=== PATIENT | male | born 1985 | race Caucasian/White ===

== ENCOUNTER 2019-10-27 17:47 | Emergency (ER) | payer SELFPAY ==
--- NOTE | 2019-10-27 18:11 | PDOC ---
Rapid Medical Evaluation Chief Complaint: Palpitations Medical Evaluation: 10/27/19 18:09 Pt presents for evaluation of palpitations for 1 week. He also admits to L sided chest pain. He was sent to the ER from the clinic on [facility] for further evaluation Exam: RRR S1S1 present. (-) m/r/g, lungs cTAB Orders: cardiac work up Pt to proceed to the ER for further evaluation. Discharge Disposition - Diagnosis Palpitations - Referrals - Patient Instructions - Post Discharge Activity
[2019-10-27 18:12] VITALS: BP 132/83; PULSE 85; TEMP 98.3; BMI 33.5
[2019-10-27 18:45] LABS: BASO % 0.4 % (0-2.0); EOS % 2.6 % (0-4.5); HEMATOCRIT 46.2 % (35.4-49); LYMPH % 45.9 % (8-40); MCH 31.9 pg (25.7-33.7); MCHC 34.7 g/dl (32.0-35.9); MEAN CELL VOLUME 91.9 fl (80-96); MEAN PLT VOLUME 9.2 fl (7.5-11.1); MONO % 6.7 % (3.8-10.2); NEUT % 44.4 % (42.8-82.8); PLATELET COUNT 181 K/MM3 (134-434); RBC 5.03 M/mm3 (4.00-5.60); RDW 12.4 % (11.9-15.9); WHITE BLOOD COUNT 6.5 K/mm3 (4.0-10.0)
[2019-10-27 19:16] LABS: ALBUMIN 4.4 g/dl (3.4-5.0); BILIRUBIN,TOTAL 0.5 mg/dL (0.2-1); CALCIUM 8.8 mg/dL (8.5-10.1); CREATININE 0.8 mg/dL (0.55-1.3); MAGNESIUM 2.4 mg/dL (1.8-2.4); POTASSIUM 3.8 mmol/L (3.5-5.1); TOT PROT 7.7 g/dl (6.4-8.2)
--- NOTE | 2019-10-27 19:27 | PDOC ---
*Physical Exam - Vital Signs Last Vital Signs Temp Pulse Resp BP Pulse Ox 98.3 F 85 18 132/83 99 10/27/19 18:08 10/27/19 18:08 10/27/19 18:08 10/27/19 18:08 10/27/19 18:08 ED Treatment Course - LABORATORY CBC & Chemistry Diagram: 10/27/19 18:16 10/27/19 18:16 - ADDITIONAL ORDERS Additional order review: Laboratory Results 10/27/19 10/27/19 18:16 18:16 Sodium 137 Potassium 3.8 Chloride 106 Carbon Dioxide 26 Anion Gap 5 L BUN 15.0 Creatinine 0.8 Est GFR (CKD-EPI)AfAm 136.03 Est GFR (CKD-EPI)NonAf 117.37 Random Glucose 101 Calcium 8.8 Magnesium 2.4 Total Bilirubin 0.5 AST 31 ALT 67 H Alkaline Phosphatase 107 Creatine Kinase 247 Troponin I < 0.02 Total Protein 7.7 Albumin 4.4 10/27/19 18:16 RBC 5.03 MCV 91.9 MCHC 34.7 RDW 12.4 MPV 9.2 Neutrophils % 44.4 Lymphocytes % 45.9 H Monocytes % 6.7 Eosinophils % 2.6 Basophils % 0.4 Medical Decision Making - Medical Decision Making 10/27/19 19:26 Patient seen by the advanced practice provider under my direct supervision. Ancillary testing reviewed as necessary. I agree with plan as outlined by the advanced practice provider. Discharge - Discharge Information Problems reviewed: Yes Clinical Impression/Diagnosis: Palpitations Condition: Stable Disposition: HOME - Follow up/Referral Referrals: Steven Roberts MD [Staff Physician] - 2 Days - Patient Discharge Instructions Patient Printed Discharge Instructions: DI for Palpitations Additional Instructions: Thank you for choosing [facility]. It was a pleasure taking care of you. Your labs and imaging were unremarkable Please follow-up with your primary care doctor for further evaluation You were also referred to a refuse driver Return to the Emergency Department if your symptoms worsen or persist or have other concerning symptoms. Jose G por elegir el [facility]. Fue un placer cuidar de ti. Chapo laboratorios e imgenes no fueron notables Jana un seguimiento con [facility] mdico de atencin primaria para emigdio evaluacin adicional. Tambin lo derivaron a un cardilogo. Regrese al departamento de emergencias si chapo sntomas empeoran o persisten o si tiene otros sntomas preocupantes. - Post Discharge Activity
--- NOTE | 2019-10-27 20:07 | PDOC ---
History of Present Illness - General Chief Complaint: Palpitations Stated Complaint: PALPITATIONS Time Seen by Provider: 10/27/19 18:11 History Source: Patient Exam Limitations: No Limitations Past History - Past Medical History Allergies/Adverse Reactions: Allergies Allergy/AdvReac Type Severity Reaction Status Date / Time No Known Allergies Allergy Verified 10/27/19 18:11 Home Medications: Ambulatory Orders NK [No Known Home Medication] 10/27/19 COPD: No Diabetes: No GI Disorders: No - Immunization History Immunization Up to Date: No - Psycho Social/Smoking Cessation Hx Smoking History: Never smoked Have you smoked in the past 12 months: No Information on smoking cessation initiated: No Hx Alcohol Use: No Drug/Substance Use Hx: No *Physical Exam - Vital Signs Last Vital Signs Temp Pulse Resp BP Pulse Ox 98.3 F 85 18 132/83 99 10/27/19 18:08 10/27/19 18:08 10/27/19 18:08 10/27/19 18:08 10/27/19 18:08 - Physical Exam General Appearance: No: Apparent Distress Respiratory/Chest: positive: Lungs Clear, Normal Breath Sounds. negative: Respiratory Distress Cardiovascular: positive: Regular Rhythm, Regular Rate, S1, S2. negative: Murmur Gastrointestinal/Abdominal: positive: Normal Bowel Sounds, Soft. negative: Tender, Distended, Guarding, Rebound Extremity: negative: Pedal Edema, Swelling, Calf Tenderness Integumentary: positive: Normal Color Neurologic: positive: Alert Heart Score/ECG Review - History History: Slightly suspicious - Electrocardiogram EKG: Normal - Age Age: </= 45 - Risk Factors Based on the list above the patient has:: No risk factors known - Troponin Troponin: </= normal limit - Score Heart Score - Total: 0 ED Treatment Course - LABORATORY CBC & Chemistry Diagram: 10/27/19 18:16 10/27/19 18:16 - ADDITIONAL ORDERS Additional order review: Laboratory Results 10/27/19 10/27/19 18:16 18:16 Sodium 137 Potassium 3.8 Chloride 106 Carbon Dioxide 26 Anion Gap 5 L BUN 15.0 Creatinine 0.8 Est GFR (CKD-EPI)AfAm 136.03 Est GFR (CKD-EPI)NonAf 117.37 Random Glucose 101 Calcium 8.8 Magnesium 2.4 Total Bilirubin 0.5 AST 31 ALT 67 H Alkaline Phosphatase 107 Creatine Kinase 247 Creatine Kinase Index 1.2 CK-MB (CK-2) 3.1 Troponin I < 0.02 Total Protein 7.7 Albumin 4.4 10/27/19 18:16 RBC 5.03 MCV 91.9 MCHC 34.7 RDW 12.4 MPV 9.2 Neutrophils % 44.4 Lymphocytes % 45.9 H Monocytes % 6.7 Eosinophils % 2.6 Basophils % 0.4 Medical Decision Making - Medical Decision Making 34 y/o M with no sig pmh presents with intermittent palpitations x 1 week along with mild L sided chest discomfort. Denies fever, URI sxs, sob, abd pain, n/v/d , urinary sxs, LOC. Drinks 1 cup of coffee/day, which is the usual for him. Denies drug use. EKG: NSR at 60 bpm, no ST-T changes, no ectopy Labs unremarkable CXR negative HS is 0 Advised f/u with PCP 10/27/19 20:02 Discharge - Discharge Information Problems reviewed: Yes Clinical Impression/Diagnosis: Palpitations Condition: Stable Disposition: HOME - Admission No - Additional Discharge Information Prescription Drug Monitoring Program (I-STOP) results: I-STOP not reviewed - Follow up/Referral Referrals: Steven Roberts MD [Staff Physician] - 2 Days - Patient Discharge Instructions Patient Printed Discharge Instructions: DI for Palpitations Additional Instructions: Thank you for choosing [facility]. It was a pleasure taking care of you. Your labs and imaging were unremarkable Please follow-up with your primary care doctor for further evaluation You were also referred to a bilingual receptionist Return to the Emergency Department if your symptoms worsen or persist or have other concerning symptoms. Jose G por elegir el [facility]. Fue un placer cuidar de ti. Chapo laboratorios e imgenes no fueron notables Jana un seguimiento con [facility] mdico de atencin primaria para emigdio evaluacin adicional. Tambin lo derivaron a un cardilogo. Regrese al departamento de emergencias si chapo sntomas empeoran o persisten o si tiene otros sntomas preocupantes. - Post Discharge Activity
--- NOTE | 2019-10-28 11:57 | EKG ---
Test Reason : Blood Pressure : / mmHG Vent. Rate : 060 BPM Atrial Rate : 060 BPM P-R Int : 148 ms QRS Dur : 092 ms QT Int : 388 ms P-R-T Axes : 055 018 034 degrees QTc Int : 388 ms NORMAL SINUS RHYTHM NORMAL ECG NO PREVIOUS ECGS AVAILABLE Confirmed by PEÑA AGEE MD ([id number]) on 10/28/2019 11:57:28 AM Referred By: Confirmed By:PEÑA AGEE MD
== END 2019-10-27 20:30 | disposition home or self-care (01) ==
LOC: JER 17:47
DX: R00.2 Palpitations (principal)
CPT/HCPCS: 36415; 71046-TC-FY; 80053; 82550; 82553; 83735; 84484; 85025; 93005; 93010; 99282-25